=== PATIENT | female | born 1975 | race Caucasian/White ===

== ENCOUNTER → 2020-04-29 15:51 | Outpatient (CLI) | payer OTHER, SELFPAY ==
--- NOTE | ~2020-04-29 | MM_ITS ---
EXAMINATION: MM screening [facility] BI w luis alberto HISTORY: Screening TECHNIQUE: Craniocaudal and mediolateral oblique 3-D tomosynthesis images were obtained and synthetic 2-D images were generated. CAD analysis was submitted and interpreted. COMPARISON: Comparison to multiple prior studies sequentially, with oldest reviewed study dated 11/24. BREAST PARENCHYMAL COMPOSITION: There are scattered areas of fibroglandular density. FINDINGS: There is no evidence of suspicious mass, calcification, or architectural distortion to sugg est malignancy in either breast. There has been no suspicious interval change. IMPRESSION: 1. No mammographic evidence of malignancy. 2. Recommend routine screening mammography in one year. BI-RADS Category 1: Negative Reviewed, dictated and finalized at location A.
== END ==
PROVIDERS: PCP Internal Medicine; Visit Provider Student in an Organized Health Care Education/Training Program
DX: Z12.31 Encounter for screening mammogram for malignant neoplasm of breast (principal)
CPT/HCPCS: 77063; 77067

== ENCOUNTER 2021-04-08 10:58 | Outpatient (CLI) | payer OTHER, SELFPAY ==
--- NOTE | ~2021-04-08 | MR_ITS ---
EXAMINATION: MR lumbar spine wo con DATE: 04/08/2021 11:49 INDICATION: Low back pain. TECHNIQUE: Magnetic resonance imaging (MRI) of the lumbar spine was performed without intravenous con trast. Sequences included sagittal T2-weighted FSE, sagittal STIR FSE, sagittal T1-weighted FSE, and axial T2-weighted FSE. COMPARISON: Lumbar spine MRI 12/04/2017 FINDINGS: Bone alignment is normal. There are changes of anterior and posterior fusion procedures at L5-S1 with interbody devices and pedicle screws. There is mild chronic anterior wedging of T11 verteb ral body. Intervertebral disc heights are normal. The distal spinal cord signal intensity is normal. The conus medullaris is at L2. The following disc levels are specifically discussed: L1-L2: The disc does not extend beyond the endplate margin. There is mild bilateral facet joint osteo arthritis. There is no neural foraminal stenosis. There is no central canal stenosis. L2-L3: The disc does not extend beyond the endplate margin. There is mild bilateral facet joint osteo arthritis. There is no neural foraminal stenosis. There is no central canal stenosis. L3-L4: The disc does not extend beyond the endplate margin. There is moderate right and mild left fac et joint osteoarthritis. There is no neural foraminal stenosis. There is no central canal stenosis. L4-L5: The disc is bulging. There is moderate bilateral facet joint osteoarthritis. There is mild margarita ateral neural foraminal stenosis. There is mild central canal stenosis. L5-S1: There is no facet joint hypertrophy. There is mild left neural foraminal stenosis. There is no central canal stenosis. IMPRESSION: 1. Mild lumbar spondylosis, stable from 12/04/2017. 2. Anterior and posterior fusion procedures at L5-S1. Reviewed, dictated and finalized at location A.
== END 2021-04-08 10:59 ==
LOC: MICIMG 11:00
PROVIDERS: PCP Internal Medicine; Visit Provider Nurse Practitioner Family
DX: M47.896 Other spondylosis, lumbar region (principal); Z98.1 Arthrodesis status
CPT/HCPCS: 72148

== ENCOUNTER → 2021-05-29 00:42 | Outpatient (CLI) | payer OTHER, SELFPAY ==
[2021-05-29 17:30] LABS: SARS-CoV-2 RNA PCR Negative
== END ==
PROVIDERS: PCP Internal Medicine; Visit Provider Internal Medicine Gastroenterology
DX: Z01.812 Encounter for preprocedural laboratory examination (principal); Z20.822 Contact with and (suspected) exposure to COVID-19
CPT/HCPCS: C9803; U0003; U0005

== ENCOUNTER 2021-06-01 01:45 | Day surgery (SDC) | payer OTHER, SELFPAY ==
[2021-05-18 13:43] VITALS: BMI 42.1
[2021-06-01 07:10] VITALS: BP 138/92; PULSE 110; RESP 18; TEMP 35.9; O2SAT 99; BMI 41.2
[2021-06-01] MEDS: LACTATED RINGERS 1,000 ML 150 ML IV CONT (07:47)
--- NOTE | 2021-06-01 08:00 | SUR.PREOP ---
06-01-21: Spoke with patient. Pt states she had a hysterectomy in her 20s. No test done.
--- NOTE | 2021-06-01 08:21 | WPDANESEPPF ---
Anes - Initial Pre Proc Eval Procedure: Operation Date: 06/01/21 08:30 Proposed Procedures p Screening Colonoscopy - Sandeep Gibbs MD Date/Time: 06/01/21 08:21 Surgeon: Sandeep Gibbs MD Pre Op Diagnosis: neoplasm screening Patient Data Age: 46 Gender: F Height: 1.57 m Weight: 102.3 kg Last Vital Signs Temp 96.7 F L 06/01/21 07:10 Pulse 110 H 06/01/21 07:10 Resp 18 06/01/21 07:10 BP 138/92 H 06/01/21 07:10 Pulse Ox 99 06/01/21 07:10 Allergies Allergy/AdvReac Type Severity Reaction Status Date / Time aspirin Allergy Severe Unknown Verified 06/01/21 07:19 ferrous sulfate Allergy Severe Anaphylaxis Verified 06/01/21 07:19 Penicillins Allergy Severe Unknown Verified 06/01/21 07:19 prochlorperazine Allergy Severe Swelling Verified 06/01/21 07:19 Sulfa (Sulfonamide Allergy Severe Anaphylaxis Verified 06/01/21 07:19 Antibiotics) Home Medications Medication Instructions Recorded Confirmed Type tizanidine 6 mg capsule 6 mg PO TID PRN 07/03/19 06/01/21 History venlafaxine 75 mg capsule,extended 75 mg PO DAILY #90 cap 01/19/21 06/01/21 Rx release 24 hr cholecalciferol (vitamin D3) 1,250 50,000 unit PO WEEKLY #10 cap 04/06/21 06/01/21 Rx mcg (50,000 unit) capsule rosuvastatin 10 mg tablet 10 mg PO DAILY #30 tablet 04/06/21 06/01/21 Rx epinephrine 0.3 ml IM ONCE PRN 05/18/21 06/01/21 History naltrexone 3 mg PO BID 05/18/21 06/01/21 History sumatriptan succinate See Rx Instructions PO .COMPLEX PRN 05/18/21 06/01/21 History Patient hx anesthesia problems: none Family hx anesthesia problems: none Results Review: All pre-operative results and documents have been reviewed as part of the pre-operative evaluation. [facility] Past Medical History Medical History (Updated 04/06/21 @ 08:34 by Jesús Jaeger MD) Anemia Incontinence Metatarsal bone fracture Seasonal allergies Vaginal delivery x 2 Vision abnormalities Surgical History Surgical History History of dilation and curettage Previous back surgery S/P ACL surgery Right S/P breast lumpectomy S/P laparoscopic surgery Status post abdominal hysterectomy and right salpingo-oophorectomy Family History Family History Grandparent Family history of blood dyscrasia Father Hypertension Cerebrovascular accident Family history of obesity Depression Family history of coronary artery disease Family history of hearing loss Family history of chronic obstructive pulmonary disease Mother Hypertension Family history of obesity Family history of osteoporosis Patient's mother is in good health Cerebrovascular accident Family history of arthritis Family history of chronic obstructive pulmonary disease Other Acute myocardial infarction Family history of dementia Family history of gastrointestinal disorder Family history of thoracic aortic aneurysm Neuropathy Social History Social History (Updated 04/06/21 @ 07:55 by Eveline Pope CNA) Smoking packs per day: 1 Smoking cigarettes per day: 20.0 Years smoked: 22 Smoking pack-years: 22.00 Smoking status: Current every day smoker Tobacco type: cigarettes Second hand tobacco smoke exposure: No Alcohol intake: current Alcohol use details: socially Substance use: never Substance use type: does not use Living arrangements: with family Spiritual care concerns: No Anes - Eval Final PreProcedure Day of Procedure 06/01/21 08:21 Patient weight: morbidly obese Heart: regular rate and rhythm Lungs: clear to auscultation Airway: Mallampati scale class II Neurological: alert and oriented Last oral intake: >/= 8 hours ASA classification: III Emergent: no Anesthetic plan: proceed Anesthesia type and monitoring: general GIVS and standard monitoring Results Review: All pre-operative results and documents
--- NOTE | 2021-06-01 08:29 | PM.HPGS ---
History of Present Illness History of Present Illness Consent: Risks, benefits, and alternatives have been discussed and questions answered. Patient agrees to proceed with procedure. Chief complaint: neoplasm screening Narrative: Eveline Kee is a 46 year old female here for screening colonoscopy, had one in 2005 because rectal bleeding. Review of Systems Constitutional: Constitutional: Denies headache(s) and Denies weakness Eyes: Eyes: Denies blurry vision ENT: Reports Normal hearing present, Denies headache(s) and Denies neck pain Cardiovascular: Cardiovascular: Denies chest pain and Denies dyspnea Respiratory: Respiratory: Denies dyspnea Gastrointestinal: Gastrointestinal: Reports no additional gastrointestinal complaints Genitourinary: Genitourinary: Denies dysuria Musculoskeletal: Musculoskeletal: Denies neck pain Integumentary/Breasts: Skin/Breast: Denies dry skin Neurologic: Reports Normal hearing present, Denies headache(s) and Denies weakness Psychiatric: Psychiatric: Denies anxiety Endocrine: Endocrine: Denies change in body appearance Hematologic/Lymphatic: Hematologic/Lymphatic: Denies easy bleeding Allergic/Immunologic: Allergic/Immunologic: Denies urticaria PMFSH Past Medical History Medical History (Updated 04/06/21 @ 08:34 by Jesús Jaeger MD) Anemia Incontinence Metatarsal bone fracture Seasonal allergies Vaginal delivery x 2 Vision abnormalities Surgical History Surgical History History of dilation and curettage Previous back surgery S/P ACL surgery Right S/P breast lumpectomy S/P laparoscopic surgery Status post abdominal hysterectomy and right salpingo-oophorectomy Family History Family History Grandparent Family history of blood dyscrasia Father Hypertension Cerebrovascular accident Family history of obesity Depression Family history of coronary artery disease Family history of hearing loss Family history of chronic obstructive pulmonary disease Mother Hypertension Family history of obesity Family history of osteoporosis Patient's mother is in good health Cerebrovascular accident Family history of arthritis Family history of chronic obstructive pulmonary disease Other Acute myocardial infarction Family history of dementia Family history of gastrointestinal disorder Family history of thoracic aortic aneurysm Neuropathy Social History Social History (Updated 04/06/21 @ 07:55 by Eveline Pope CNA) Smoking packs per day: 1 Smoking cigarettes per day: 20.0 Years smoked: 22 Smoking pack-years: 22.00 Smoking status: Current every day smoker Tobacco type: cigarettes Second hand tobacco smoke exposure: No Alcohol intake: current Alcohol use details: socially Substance use: never Substance use type: does not use Living arrangements: with family Spiritual care concerns: No Meds Home Medications and Allergies Home Medications Medication Instructions Recorded Confirmed Type tizanidine 6 mg capsule 6 mg PO TID PRN 07/03/19 06/01/21 History venlafaxine 75 mg capsule,extended 75 mg PO DAILY #90 cap 01/19/21 06/01/21 Rx release 24 hr cholecalciferol (vitamin D3) 1,250 50,000 unit PO WEEKLY #10 cap 04/06/21 06/01/21 Rx mcg (50,000 unit) capsule rosuvastatin 10 mg tablet 10 mg PO DAILY #30 tablet 04/06/21 06/01/21 Rx epinephrine 0.3 ml IM ONCE PRN 05/18/21 06/01/21 History naltrexone 3 mg PO BID 05/18/21 06/01/21 History sumatriptan succinate See Rx Instructions PO .COMPLEX PRN 05/18/21 06/01/21 History Allergies Allergy/AdvReac Type Severity Reaction Status Date / Time aspirin Allergy Severe Unknown Verified 06/01/21 07:19 ferrous sulfate Allergy Severe Anaphylaxis Verified 06/01/21 07:19 Penicillins Allergy Severe Unknown Verified 06/01/21 07:19 prochlorperazine Allergy Severe Swel
[2021-06-01 08:45] VITALS: BP 97/59; PULSE 76; RESP 20; O2SAT 98
[2021-06-01 08:55] VITALS: BP 102/60; PULSE 76; RESP 20; O2SAT 97
[2021-06-01 09:05] VITALS: BP 130/80; PULSE 69; RESP 24; O2SAT 100
== END 2021-06-01 09:11 | disposition home or self-care (01) ==
PROVIDERS: PCP Internal Medicine; Visit Provider Internal Medicine Gastroenterology
PROC: 0DJD8ZZ Inspection of Lower Intestinal Tract, Via Natural or Artificial Opening Endoscopic (ICD-10-PCS; CPT 45378; principal; 2021-06-01 08:30)
DX: Z12.11 Encounter for screening for malignant neoplasm of colon (principal); K64.8 Other hemorrhoids; D64.9 Anemia, unspecified; Z79.82 Long term (current) use of aspirin; F17.210 Nicotine dependence, cigarettes, uncomplicated; E66.9 Obesity, unspecified; Z68.41 Body mass index [BMI] 40.0-44.9, adult
CPT/HCPCS: G0121; C9803; J2704; J7120; U0003; U0005

== ENCOUNTER 2021-11-20 09:39 | Emergency (ER) | payer OTHER, SELFPAY ==
[2021-11-20 10:01] VITALS: BP 144/92; PULSE 96; RESP 16; O2SAT 100
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
[2021-11-20] MEDS: CIPROFLOXACIN 500 MG TAB PO (10:41)
== END 2021-11-20 10:54 | disposition home or self-care (01) ==
PROVIDERS: Emergency Provider Emergency Medicine; PCP Internal Medicine
DX: S00.432A Contusion of left ear, initial encounter (principal); Z86.2 Personal history of diseases of the blood and blood-forming organs and certain disorders involving the immune mechanism; F17.210 Nicotine dependence, cigarettes, uncomplicated; W51.XXXA Accidental striking against or bumped into by another person, initial encounter
CPT/HCPCS: 99283; A9270

== ENCOUNTER 2022-05-12 13:04 | Outpatient (CLI) | payer OTHER, SELFPAY ==
--- NOTE | ~2022-05-12 | US_ITS ---
EXAMINATION: US_BCALIMG_US DATE: 05/12/2022 14:41 INDICATION: Mastitis and possible breast abscess TECHNIQUE: Targeted ultrasound was performed at the 9:00 location the breast near the nipple at the a deisy of clinical concern. An approximately 1.3 x 0.7 cm fluid collection is identified in the area of clinical interest. The procedure for aspiration and its risks and benefits were discussed with the sridevi linder. Potential risks discussed included bleeding and infection. The skin was prepared and draped in sterile fashion. 1% lidocaine was used for local anesthesia. Under ultrasound guidance, an 18-gauge needle was guided into the fluid collection. Approximately 1 to 2 cc of purulent and bloody fluid was aspirated and sent for analysis. There were no immediate complications. FINDINGS: Ultrasound images demonstrate the needle within the fluid and subsequent aspiration. IMPRESSION: 1. Successful ultrasound-guided breast aspiration yielding approximately 1 to 2 cc of purulent and bl oody fluid. Reviewed, dictated and finalized at location A. IMPRESSION: 1. Successful ultrasound-guided breast aspiration yielding approximately 1 to 2 cc of purulent and bloody fluid.
== END 2022-05-12 13:05 | disposition home or self-care (01) ==
PROVIDERS: PCP Internal Medicine; Visit Provider Surgery
DX: N61.0 Mastitis without abscess (principal)
CPT/HCPCS: 19000; 76641; 76942; 87070; 87075; 87205

== ENCOUNTER → 2022-07-20 13:21 | Outpatient (CLI) | payer OTHER, SELFPAY ==
--- NOTE | ~2022-07-20 | MM_ITS ---
EXAMINATION: MM screening [facility] BI w luis alberto HISTORY: Screening mammogram TECHNIQUE: Craniocaudal and mediolateral oblique 3-D tomosynthesis images were obtained and synthetic 2-D images were generated. CAD analysis was submitted and interpreted. COMPARISON: 04/29/2020, 04/16/2018, 12/06/2016, 11/24/2016 BREAST PARENCHYMAL COMPOSITION: There are scattered areas of fibroglandular density. FINDINGS: No suspicious mass, calcification, or architectural distortion are identified in either nikita ast to suggest malignancy. There has been no suspicious interval change. IMPRESSION: 1. No mammographic evidence of malignancy. 2. Recommend routine screening mammography in one year. BI-RADS Category 1: Negative Reviewed, dictated and finalized at location A. ING SCHEDULER
== END ==
PROVIDERS: PCP Internal Medicine; Visit Provider Nurse Practitioner
DX: Z12.31 Encounter for screening mammogram for malignant neoplasm of breast (principal)
CPT/HCPCS: 77063; 77067

== ENCOUNTER 2023-02-21 09:18 | Outpatient (CLI) | payer OTHER, SELFPAY ==
--- NOTE | ~2023-02-21 | MMUS_ITS ---
EXAMINATION: MM diagnostic rodney LT w luis alberto, US breast LT limited HISTORY: Subareolar abscess of the left breast TECHNIQUE: Craniocaudal, mediolateral, and mediolateral oblique 3-D tomosynthesis images of the left breast were performed and synthetic 2-D images were generated. CAD analysis was submitted and interpr eted. High resolution limited left breast ultrasound was performed. COMPARISON: 07/20/2022, 05/12/2022, 04/29/2020, 04/16/2019 BREAST PARENCHYMAL COMPOSITION: There are scattered areas of fibroglandular density. FINDINGS: MAMMOGRAPHIC FINDINGS: No suspicious mass, calcification, or architectural distortion are identified to suggest malignancy. There has been no suspicious interval change. No mammographic correlate is identified for the reporte d subareolar left breast abscess. ULTRASOUND: There is a 7 mm fluid collection in the skin of the left breast near the nipple and the area of palpa ble concern. No suspicious cystic or solid breast mass is identified. IMPRESSION: 1. Subcentimeter skin abscess of the left breast near the nipple corresponding to the palpable abnorm ality. Clinical follow-up is recommended. 2. Recommend routine screening mammography, due in July 2023. BI-RADS Category 2: Benign finding(s). Reviewed, dictated and finalized at location C. IMPRESSION: 1. Subcentimeter skin abscess of the left breast near the nipple corresponding to the palpable abnormality. Clinical follow-up is recommended. 2. Recommend routine screening mammography, due in July 2023. BI-RADS Category 2: Benign finding(s).
== END 2023-02-21 09:19 ==
LOC: MICIMG 09:19
PROVIDERS: PCP Physician Assistant; Visit Provider Surgery
DX: N61.1 Abscess of the breast and nipple (principal)
CPT/HCPCS: 76642; 77061; 77065; G0279

== ENCOUNTER 2023-04-19 08:20 | Outpatient (CLI) | payer OTHER, SELFPAY ==
--- NOTE | 2023-04-19 08:32 | ECG_ITS ---
Measurements Intervals [place] Rate: 78 P: 60 NV: 142 QRS: 34 QRSD: 94 T: 26 QT: 374 QTc: 427 Interpretive Statements SINUS RHYTHM NO PREVIOUS ECG AVAILABLE FOR COMPARISON Electronically Signed On 04-19-2023 15:44:07 CDT by Sherice Moreno M.D.
== END 2023-04-19 08:21 | disposition home or self-care (01) ==
LOC: ANHSURGERY 08:23
PROVIDERS: PCP Physician Assistant; Visit Provider Surgery
DX: E78.5 Hyperlipidemia, unspecified (principal); Z01.818 Encounter for other preprocedural examination
CPT/HCPCS: 93005

== ENCOUNTER 2023-04-25 01:35 | Day surgery (SDC) | payer OTHER, SELFPAY ==
[2023-04-13 09:33] VITALS: BMI 41.2
--- NOTE | 2023-04-13 09:34 | PC.NURSE ---
Report to the Outpatient Waiting Room, entrance under the green pavilion located off [facility], at time _0600_ on date _[id number]_. Planned Procedure Time: _0730_. Time changes happen often and if your time is changed the preop area will call you the afternoon before. - You and your visitor will be asked to self-screen and do not enter if you have any COVID symptoms. - A mask is optional within the hospital at this time. Patients may have clear liquids (water, carbonated beverages, clear teas, apple juice) until 3 hours prior to surgery with a maximum of 20 ounces. - No food from midnight until time of surgery Take the following medications with a SIP of water the morning of surgery: ___Venlafaxine, Naltrexone DO NOT STOP ANY OF YOUR OTHER PRESCRIPTION MEDICATIONS PRIOR TO SURGERY ?EXCEPT THE FOLLOWING Medications to discontinue per physician Vitamin D3 Date to take last [id number]__[phone] Please no make-up, nail ethiopian, hairspray, perfume, deodorant, or body powder the day of surgery. No jewelry (including any body piercings) or valuables the day of surgery, leave them at home. Please take a shower or bath the night before, or the morning of, surgery with an antibacterial soap. Wear comfortable, loose fitting clothing. - Jewelry must be removed prior to entering the operating room. Rings and piercings that are not removed may be cut off. - The hospital will not accept responsibility for valuables. - Please leave all valuables, including medications, at home the day of surgery. If you are going home after surgery, a licensed jitney driver must drive you home. - NO public transportation without another adult if you receive anesthesia. - We recommend that an adult stay with you for 24 hours following discharge. - We also recommend that you do not drive, make important decision, drink alcoholic beverages, or take any drugs that were not prescribed by your health care provider for at least 24 hours after your discharge time. Follow any additional instructions given to you from your surgeon. If you or anyone in your household have experienced Covid symptoms in the past week, please notify your surgeon or the nurse liaison at the phone number below for possible testing. Telephone instructions given to __Patient__and asked if any additional questions and then verbalized understanding. Patient advised to call surgeon office or pre surgery nurse liaison [phone] if any additional questions.
[2023-04-25] VITALS (8 sets, daily range): BP systolic 114–150; BP diastolic 78–95; PULSE 66–99; RESP 12–20; TEMP 36.5–36.6; O2SAT 66–100
[2023-04-25] MEDS: SCOPOLAMINE 1.5 MG PATCH TRANSDERM (06:30)
[2023-04-25] MEDS: LACTATED RINGERS 1,000 ML 30 ML IV CONT ×2 (06:30→08:30)
[2023-04-25] MEDS: ACETAMINOPHEN 500 MG TABLET 1000 MG PO (06:30)
--- NOTE | 2023-04-25 06:58 | WPDANESEPPF ---
Anes - Initial Pre Proc Eval Procedure: Operation Date: 04/25/23 07:30 Proposed Procedures p Excisional Biopsy Left Breast Subareolar Cyst and Total Duct Excision - Ana Siegel MD Date/Time: 04/25/23 06:58 Surgeon: Ana Siegel MD Pre Op Diagnosis: mastitis without abscess left breast Patient Data Age: 47 Gender: F Height: 1.57 m Weight: 102.3 kg Allergies Allergy/AdvReac Type Severity Reaction Status Date / Time aspirin Allergy Severe Unknown Verified 04/19/23 09:12 ferrous sulfate Allergy Severe Anaphylaxis Verified 04/19/23 09:12 Penicillins Allergy Severe Unknown Verified 04/19/23 09:12 prochlorperazine Allergy Severe Swelling Verified 04/19/23 09:12 Sulfa (Sulfonamide Allergy Severe Anaphylaxis Verified 04/19/23 09:12 Antibiotics) Home Medications Medication Instructions Recorded Confirmed Type tizanidine 6 mg capsule 6 mg PO TID PRN Pain 07/03/19 04/13/23 History naltrexone 50 mg tablet 3 mg PO BID 05/18/21 04/13/23 History cholecalciferol (vitamin D3) 25 25 mcg PO DAILY 10/27/22 04/13/23 History mcg (1,000 unit) capsule ciclopirox 8 % topical solution 1 applic topical QHS 48 weeks #6.6 10/27/22 04/13/23 Rx mL epinephrine 0.3 mg/0.3 mL 0.3 mg (0.3 mL) IM ONCE #2 ea 10/27/22 04/13/23 Rx injection, auto-injector venlafaxine 75 mg capsule,extended See Rx Instructions .Route 03/06/23 04/13/23 Rx release 24 hr .COMPLEX #90 caps Patient hx anesthesia problems: post op nausea/vomiting Family hx anesthesia problems: none Results Review: All pre-operative results and documents have been reviewed as part of the pre-operative evaluation. [facility] Past Medical History Medical History (Updated 01/18/23 @ 08:50 by Ana Siegel MD) Anemia Depression History of blood transfusion History of bronchitis History of miscarriage Incontinence Metatarsal bone fracture Seasonal allergies Vaginal delivery x 2 Vision abnormalities Surgical History Surgical History History of dilation and curettage Previous back surgery S/P ACL surgery Right S/P breast lumpectomy S/P laparoscopic surgery Status post abdominal hysterectomy and right salpingo-oophorectomy Family History Family History Grandparent Family history of blood dyscrasia Father Hypertension Cerebrovascular accident Family history of obesity Depression Family history of coronary artery disease Family history of hearing loss Family history of chronic obstructive pulmonary disease Mother Hypertension Family history of obesity Family history of osteoporosis Patient's mother is in good health Family history of arthritis Family history of chronic obstructive pulmonary disease Other Acute myocardial infarction Family history of dementia Family history of gastrointestinal disorder Family history of thoracic aortic aneurysm Neuropathy Social History Social History (Updated 01/18/23 @ 08:07 by Ilana Murcia [facility]) Smoking packs per day: 1 Smoking cigarettes per day: 20.0 Years smoked: 20 Smoking pack-years: 20.00 Smoking status: Current every day smoker Tobacco type: cigarettes Second hand tobacco smoke exposure: Yes Alcohol intake: current Alcohol use details: socially Substance use: never Substance use type: does not use Lack of Transportation: No Lack of Food: Never True Current Housing: I Have Housing Concerned About Future Housing: No Difficulty Paying Gas/Electric Bills: No Difficulty Paying for Meds: No Currently Unemployed: No Education: Associate Degree Difficulty w/ Childcare or Family Care: No Living arrangements: with family Spiritual care concerns: No Anes - Eval Final PreProcedure Day of Procedure 04/25/23 06:58 Patient weight: morbidly obese Heart: regular rate and rhythm Lungs: clear to
--- NOTE | 2023-04-25 06:58 | WPDHPUPDATE1 ---
History and Physical Update Update Date/Time: 04/25/23 06:58 History and Physical has been reviewed, including an updated exam of the patient. There are NO changes in the patient's condition. Risks, benefits, and alternatives have been discussed and questions answered. Patient agrees to proceed with procedure.
[2023-04-25] MEDS: ceFAZolin 2 GM/D5W 50 ML 2 GM/50 ML BAG IVPB (07:26)
--- NOTE | 2023-04-25 08:22 | P.OP_ITS ---
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 She was laid supine on the operating table sequential compression devices were applied. General anesthesia was induced without difficulty. A medial periareolar incision was made and dissection was carried down to the subareolar chronic abscess capsule. This was completely excised, and inspection of the cavity revealed a small fistula tract connecting to the lateral part of the nipple, likely consistent with the nipple ring tract. This tract also excised and sent as a specimen. I proceeded to excise the remaining central ducts there were visible on the operating field that were likely connecting to the subareolar abscess cavity. All the specimens were sent as permanent specimen to pathology. The cavity was irrigated and hemostasis was assured. Medial fistula tract opening at the areolar skin was also excised along with the abscess cavity. This small incision was closed with a single [id number] 4- 0 Monocryl. The periareolar incision was closed with deep dermal interrupted 3- 0 Vicryl and the skin was closed with 4-0 Monocryl in a subcuticular fashion. Dermabond was applied followed by a sterile dressing and a compression bra. Patient was awoken from anesthesia taken to the recovery area in stable condition. All needles, instruments, and sponge counts were correct as reported by the operating room staff. Patient tolerated the procedure well with no immediate complications. Estimated Blood Loss 5 Pathology Yes Complications No immediate complications Condition Stable Disposition PACU [facility] Billing Surgery - Charge Forward: Surgery Billing
[2023-04-25] MEDS: BUPIVACAINE/EPINEPHRINE 0.5% 50 ML VIAL 17 ML INFILTRATE (08:34)
[2023-04-25] MEDS: diphenhydrAMINE HCl INJ 50 MG/ML VIAL 12.5 MG IV PUSH ×2 (09:39→09:56)
[2023-04-25] MEDS: oxyCODONE HCL (*CRX) 5 MG TAB IR PO (10:12)
== END 2023-04-25 10:36 | disposition home or self-care (01) ==
PROVIDERS: PCP Physician Assistant; Visit Provider Surgery
PROC: (CPT 19120; principal; 2023-04-25 07:30)
DX: N60.82 Other benign mammary dysplasias of left breast (principal); N61.1 Abscess of the breast and nipple; D64.9 Anemia, unspecified; F32.A Depression, unspecified; F17.210 Nicotine dependence, cigarettes, uncomplicated; Z79.82 Long term (current) use of aspirin; E66.01 Morbid (severe) obesity due to excess calories; Z68.41 Body mass index [BMI] 40.0-44.9, adult
CPT/HCPCS: 19120; 88305; 93005; A9270; J0690; J1100; J1200; J2250; J2405; J2704; J3010; J7120; Q9968

== ENCOUNTER 2023-06-21 15:50 | Outpatient (CLI) | payer OTHER, SELFPAY ==
[2023-06-21 16:54] LABS: RSV RNA, RT-PCR Negative (Negative)
== END 2023-06-21 15:51 | disposition home or self-care (01) ==
PROVIDERS: PCP Physician Assistant; Visit Provider Physician Assistant
DX: Z20.828 Contact with and (suspected) exposure to other viral communicable diseases (principal)
CPT/HCPCS: 87634

== ENCOUNTER 2024-05-15 13:52 | Outpatient (CLI) | payer OTHER, SELFPAY ==
--- NOTE | ~2024-05-15 | MM_ITS ---
EXAMINATION: MM screening rodney BI w luis alberto HISTORY: Screening mammogram TECHNIQUE: Craniocaudal and mediolateral oblique 3-D tomosynthesis images were obtained and synthetic 2-D images were generated. CAD analysis was submitted and interpreted. COMPARISON: 02/21/2023, 07/20/2022, 04/29/2020 BREAST PARENCHYMAL COMPOSITION:Not Dense. The breasts are almost entirely fatty FINDINGS: No suspicious mass, calcification, or architectural distortion are identified in either nikita ast to suggest malignancy. There has been no suspicious interval change. IMPRESSION: No mammographic evidence of malignancy. Recommend routine screening mammography in one year. BI-RADS Category 1: Negative Reviewed, dictated and finalized at location .
== END 2024-05-15 13:53 | disposition home or self-care (01) ==
PROVIDERS: PCP Internal Medicine; Visit Provider Internal Medicine
DX: Z12.31 Encounter for screening mammogram for malignant neoplasm of breast (principal)
CPT/HCPCS: 77063; 77067

== ENCOUNTER 2024-10-22 10:06 | Outpatient (CLI) | payer OTHER, SELFPAY ==
--- OUTSIDE RECORDS SUMMARY | 2024-10-22 11:15 | XMS_ITS | Clinical Summary ---
Author Organization [facility] Address [address] [place] [address] Phone Care Team Providers Care Orthophoto Tech/Draftsman Name Role Phone Dustin Edwards MD Primary Care Provider Active Problems Problem Noted Date Diagnosed Date Chronic pain syndrome 10/28/2016 Somatic symptom disorder, pe rsistent, severe, with predominant pain 10/28/2016 Social History Tobacco Use Types Packs/Day Years Used Date Smoking Tobacco: Never Assessed Comments Unknown Sex and Gender Information Value Date Recorded Sex Assigned at Not on file Legal Sex Female 3:10 PM CDT Gender Identity Not on file Sexual Orientation Not on file Plan of Treatment Health Maintenance Due Date Last Done Comments Hepatitis C Virus (HCV) Screening 1975 Hepatitis B Immunization (1 of 3 - 19+ 3-dose series) 1994 Pap Smear 1996 Cervical Cancer Screening (CCS) 2005 HPV/Cotest 2005 Discussion re Starting/Frequ ency of Mammograms 2015 Colonoscopy 2020 Colorectal Cancer Screening 2020 Influenza Immunization (#1) 2024 SARS-COV-2 Immunization ( season) 2024 Respiratory Syncytial Virus (RSV) Immunization (Adult) (1 - 1-dose 75+ series) 2050 DTaP/Tdap/Td Immunization Discontinued 11/30/2011 TdaP Immunization Completed 11/30/2011 Meningococcal Immunization (ACWY) Aged Out No longer eligible based on patient's age to complete this topic Pneumococcal Immunization Combined Aged Out No longer eligible b ased on patient's age to complete this topic Rotavirus Immunization Aged Out No lo nger eligible based on patient's age to complete this topic Insurance MEDICARE C ESSENCE Care Teams Orthophoto Tech/Draftsman Relationship Specialty Start Date End Date Dustin Edwards MD [address] [place] [address] PCP - General Family Medicine 10/27/16
--- OUTSIDE RECORDS SUMMARY | 2024-10-22 11:15 | XMS_ITS | Continuity of Care Document ---
Author Organization [employer] [facility] [employer] [facility] Address [address] [address] [place] [address] Phone Care Team Providers Care Wardsperson Name Role Phone Unavailable Unavailable Unavailable Allergies, Adverse Reactions, Alerts Substance Reaction Status Criticality PROCHLORPERAZINE MALEATE rash/ swelling Active N o Information PROCHLORPERAZINE EDISYLATE rash/ swelling Active No Information aspirin swelling of throat Active No Inform ation Sulfa (Sulfonamide Antibiotics) hives Active No Information Penicillins hives Active No Information Medications Medication Instructions Dosage Effective Dates (start - stop) Status Comments Lunesta 3 mg Tab 1 tab po hs - Active Effexor XR 75 mg 24 hr Cap - Active phentermine 15 mg Cap Take one tablet by mouth daily - Active Advance Directives Directive Yes / No Effective Date File Name No Information Encounters Encounter Description Practice Location Reason(s) For Visit Diagnoses Date Provider Providers Copied on Encounter [employer] [facility], [address] [address], [place], [place], [id number] , tel: [phone] [facility] 1st Care No Information 9 No Information [employer] [facility], [address] [address], [place], [place], [id number] , tel: [phone] [facility] Orthopaedics No Information 6 Debbie Sultana. [address] [place] [address], [id number], [place]. tel:[phone] Referring Provider: Rd Lewis, [address] [place] [address], [address] . tel:[phone] [employer] [facility], [address] [address], [place], [place], [id number] , [place] tel: [phone] [facility] wrist injury (chief complaint) No Information 6 Amy Orellana. [address] [place], [place], [id number], [place]. tel:[phone] Referring Provider: Esteban Reyes, [address] [place], [address] . tel:[phone] [facility], [address] [address], [place], [place], [id number] , [place] tel: [phone] [facility] wt gain, depression (chief complaint) No Information 5 Amy Orellana. [address] [place], [place], [id number], [place]. tel:[phone] Referring Provider: Esteban Reyes, [address] [place], [address] . tel:[phone] Family History Family Member Type Diagnosis Age At Onset No Information Payers Payer name Insurance type Covered democrat ID Authoriza tion(s) No Information Social History Type Description Quantity Date Captured Comments Sex Female Smoking Status No Information Chief Complaint And Reason For Visit No Information Reason For Referral Reason For Referral No Information History Of Present Illness Encounter Date Complaint History Of Prese nt Illness No Information Functional Status Date Functional Assessmen t No Information Instructions Date Instruction Additional Infor mation No Information Assessments Type Assessment Date No Information Patient Care Teams Name Effective Dates (start - stop) Status Members No Information
--- OUTSIDE RECORDS SUMMARY | 2024-10-22 11:15 | XMS_ITS | Clinical Summary ---
Author Organization [facility] Address [address] [place] [address] Care Team Providers Care Registered Radiation Therapist Name Role Phone Unavailable Primary Care Provider Unavailabl e Social History Tobacco Use Types Packs/Day Years Used Date Smoking Tobacco: Never Assessed Comments Unknown Sex and Gender Information Value Date Recorded Sex Assigned at Not on file Legal Sex Female 8:01 PM CDT Gender Identity Not on file Sexual Orientation Not on file Last Filed Vital Signs Vital Sign Reading Time Taken Comments Blood Pressure 132/80 04/13/2017 9:53 AM CDT Pulse 104 04/13/2017 9:53 AM CDT Temperature - - Respiratory Rate - - Oxygen Saturation - - Inhaled Oxygen Concentration - - Weight 88.5 kg (195 lb 2.1 oz) 04/13/2017 9:53 A M CDT Height 157.5 cm (5' 2 ) 04/13/2017 9:53 AM CDT Body Mass Index 35.69 04/13/2017 9:53 AM CDT Plan of Treatment Health Maintenance Due Date Last Done Comments Cervical Cancer Screening Pa p Smear (Age 30 to 64) Every 3 Years 1975 Colorectal Cancer Screening Colonoscopy (10 Years) 1975 Annual Physical 1978 Hepatitis C 1993 DTaP, Tdap and Td Vaccines ( 1 - Tdap) 1994 Hepatitis B Vaccines (1 of 3 - 19+ 3-dose series) 1994 Mammogram Screening 12/06/2018 12/06/2016 Cervical Cancer Screening Pa p with HPV Testing (Age 30 to 64) Every 5 Years 11/29/2021 11/29/2016, 11/29/2016 Cervical Cancer Screening wi th HPV 11/29/2021 COVID-19 Vaccine (2023-2 5 season) 2024 Meningococcal B Vaccine Aged Out No l onger eligible based on patient's age to complete this topic Meningococcal Vaccine Aged Out No ronaldo anne-marie eligible based on patient's age to complete this topic Pneumococcal Vaccine: Pediatrics (0 to 5 Years) and At-Risk Patients (6 to 64 Years) Aged Out No longer eligible b ased on patient's age to complete this topic RSV Immunizations Under 20 Months Aged Out No longer eligible b ased on patient's age to complete this topic Procedures Procedure Name Priority Date/Time Associated Diagnosis Comments MG DIAGNOSTIC NENA DIGI Routine 12/06/2016 12:00 AM CDT THINPREP PAP AND HPV DNA, WI GC/CHMD Routine 11/29/2016 2:00 PM CDT from Last 3 Months or Most Recently Relevant to Health Maintenance Results * MG DIAGNOSTIC NENA DIGI (12/06/2016 12:00 AM CDT) Anatomical Region Laterality Modality Breast Bilateral Mammography 12/06/2016 12/06/2016 Narrative 04/13/2017 10:00 AM CDT birads 2 - benign Procedure Note , Generic Conversion, MD - 05/10/2018 birads 2 - benign us Donell Reddy MD MAMMO Final Result * THINPREP PAP AND HPV DNA, WI GC/CHMD (11/29/2016 2:00 PM CDT) CLINICAL INFORMATION: SEE NOTE [facility] TO EPIC CONVERSION Comment:Result Comment: Info rmation not provided Clinical Information: SEE NOTE [facility] TO EPIC CONVERSION Comment:Result Comment: Info rmation not provided Date of Last Pap SEE NOTE [facility] TO EPIC CONVERSION Comment:Result Comment: Info rmation not provided Previous Biopsy? SEE NOTE [facility] TO EPIC CONVERSION Comment:Result Comment: Info rmation not provided SOURCE (QST) SEE NOTE [facility] TO EPIC CONVERSION Comment:Result Comment: Info rmation not provided COMMENT SEE NOTE [facility] T O EPIC CONVERSION Comment: Result Comment: Satisfactory for evaluation. Endocervical/transformation zone component present. Age and/or menstrual status not provided PAP INTERPRETATION/RESU LTS SEE NOTE [facility] TO EPIC CONVERSION Comment:Result Comment: Nega tive for intraepithelial lesion or malignancy. COMMENT: SEE NOTE [facility] T O EPIC CONVERSION Comment: Result Comment: This Pap test has been evaluated with computer assisted technology. TRANSMISSION TECHNICIAN SEE NOTE [facility] TO EPIC CONVERSION Comment: Result Comment: MEF, CT(ASCP) CT screening location: [address] [place] [address] REVIEW TRANSMISSION TECHNICIAN: SEE NOTE [facility] T O EPIC CONVERSION Comment: Result Comment: MDG, CT(ASCP) CT screening location: [place] [address] [place] [address] HPV INTERMEDIATE/HIGH RISK TNP [facility] TO EPIC CONVERSION Comment: Result Comment: Test not performed. Duplicate test. CHLAMYDIA TRACHOMATIS RNA TMA NOT DETECTED NOT DETECTED [facility] TO EPIC CONVERSION N.GONORRHOEAE RNA TMA (QST) NOT DETECTED NOT DETECTED [facility] TO EPIC CONVERSION COMMENT: SEE NOTE [facility] T O EPIC CONVERSION Comment: Result Comment: This test was performed using the APTIMA COMBO2 Assay ([employer] The analytical performance characteristics of this assay, when used to test [employer] specimens have been determined by [employer]. Test Performed at: [facility] [address] [address] MIGUEL WYNN MD INFECTION: SEE NOTE [facility] TO EPIC CONVERSION Comment:Result Comment: Tric homonas vaginalis identified. 11/29/2016 2:00 PM CDT 11/29/2016 2:00 PM CDT Narrative [facility] TO EPIC CONVERSION - 11/30/2016 2:59 AM CDT Result Communication: No patient communication needed at this time Marce ALMONTE PATHOLOGY/CYTOLOGY ORDERABLES Final Result [facility] TO EPIC CONVERSION from Last 3 Months or Most Recently Relevant to Health Maintenance
--- OUTSIDE RECORDS SUMMARY | 2024-10-22 11:15 | XMS_ITS | Clinical Summary ---
Author Organization [email or web address] Address [address] [place] [address] Care Team Providers Care Motion Designer Name Role Phone Arcenio Cowan MD Unavailable Jesús Jaeger MD Primary Care Provider [phone] Source Comments [email or web address],non-owned Affiliates and Associated Physician Practices is amultiple site organization consisting of ambulatory clinics and hospital sitesin [place], [place], [place] and [place]. This disclosure is being madepursuant to the Care Everywhere program and may not contain all information available regarding this patient. Last updated 18.[email or web address] Allergies Active Allergy Reactions Criticality Noted Date Comments Aspirin Anaphylaxis High 02/10/2017 As a child Prochlorperazine Rash,Swelling Medium 02/10/2017 Ferrous Sulfate Anaphylaxis High 02/10/2017 Has sulfa in it. Penicillins 02/10/2017 As a child. Can't remember what reaction was. Sulfa Drugs Anaphylaxis High 02/10/2017 As a child Medications * Be aware that medications may not be up to date on this document. Alwaysverify current medications with the patient. Medication Sig Dispensed Refills Start Date End Date Status EPINEPHrine (EPIPEN) 0.3 MG/0.3ML auto-injector pen Inject 0.3 mg into muscle as needed for Allergic Reaction 1 01/16/2017 Active morphine SR 24hr (HANNA) 30 MG capsule Take 30 mg by mouth 2 times daily Patient is taking Morphine ER 30 mg BID 0 01/31/2017 Active morphine (MSIR) 15 MG tablet Take 15 mg by mouth every 8 hours as needed for Pain Active cyclobenzaprine (FLEXERIL) 10 MG tablet Take 10 mg by mouth 3 times daily as needed for Muscle Spasms 0 03/14/2017 Active tiZANidine (ZANAFLEX) 4 MG tablet Take 4 mg by mouth 3 times daily 2 11/08/2017 Active buPROPion XL 24hr (WELLBUTRIN-XL) 150 MG tablet Take 150 mg by mouth once daily 0 11/10/2017 Active ALPRAZolam (XANAX) 0.25 MG tablet Take 0.25 mg by mouth once daily as needed for Anxiety 0 11/01/2017 Active naltrexone 3 MG capsule Take 1 capsule by mouth once daily Active Active Problems Problem Noted Date Diagnosed Date 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 Osteoarthritis of multiple joints 11/27/2017 Polyarthralgia 08/28/2017 Chronic low back pain 08/28/2017 Medication monitoring encounter 08/28/2017 Resolved Problems Problem Noted Date Diagnosed Date Resolved Date Elevated rheumatoid factor 08/28/2017 0 11/27/2017 Family History Medical History Relation Name Comments HIV/AIDS Brother Raynaud's Syndr ome Colitis Sister 1 Thyroid Disease Sister 1 Crohn's Disease Sister 2 Relation Name Status Comments Brother Alive Father Mother Alive Sister 1 Alive Sister 2 Social History Tobacco Use Types Packs/Day Years Used Date Smoking Tobacco: Every Day Cigarettes Smokeless Tobacco: Never Tobacco Cessation:Ready to Q uit: No; Counseling Given: Yes Alcohol Use Standard Drinks/Week Comments Yes 0 (1 standard drink = 0.6 oz pur e alcohol) Rare Sex and Gender Information Value Date Recorded Sex Assigned at Not on file Gender Identity Not on file Sexual Orientation Not on file Last Filed Vital Signs Vital Sign Reading Time Taken Comments Blood Pressure 110/74 11/27/2017 12:32 PM CDT Pulse 102 11/27/2017 12:32 PM CDT Temperature - - Respiratory Rate - - Oxygen Saturation - - Inhaled Oxygen Concentration - - Weight 92.2 kg (203 lb 3.2 oz) 11/27/2017 12:32 PM CDT Height 157.5 cm (5' 2 ) 11/27/2017 12:32 PM CDT Body Mass Index 37.17 11/27/2017 12:32 PM CDT Plan of Treatment Health Maintenance Due Date Last Done Comments COLOGUARD (AGES 45-75) - COL ON CA SCREENING 1975 COLON MONITORING 1975 COLONOSCOPY - COLON CA SCREENING 1975 CT COLONOGRAPHY - COLON CA SCREENING 1975 Colorectal Cancer Screening 1975 FIT - COLON CA SCREENING 1975 FLEX SIG - COLON CA SCREENING 1975 LIPID TESTING 1975 MAMMOGRAM 1975 MEDICARE AWV 12 MONTHS 1975 PAP SMEAR 1975 HIV SCREENING 1990 DTAP/TDAP/TD VACCINES (1 - Tdap) 1994 HEPATITIS B VACCINE (1 of 3 - 19+ 3-dose series) 1994 PNEUMOCOCCAL VACCINE (1 of 2 - PCV) 1994 SCREENING FOR DIABETES 08/28/2020 8, 02/10/2017 COVID-19 VACCINE (1 - 2023-2 5 season) 2024 DEPRESSION SCREENING 07/17/2024 MEDICARE AWV CALENDAR YEAR 2024 INFLUENZA VACCINE (Season Ended) 2025 ZOSTER VACCINE (1 of 2) 2025 HEPATITIS C SCREENING Completed 02/10/2017 HIB VACCINE Aged Out No longer eligi ble based on patient's age to complete this topic HPV VACCINE Aged Out No longer eligi ble based on patient's age to complete this topic MENINGOCOCCAL (Group B) VACCINE SHARED DECISION-MAKING Aged Out No longer eligible based on patient's age to complete this topic MENINGOCOCCAL GROUPS A/C/Y/W VACCINE Aged Out No longer eligible b ased on patient's age to complete this topic Procedures Procedure Name Priority Date/Time Associated Diagnosis Comments COMPREHENSIVE METABOLIC PANEL Routine 08/28/2017 1:59 PM BUSH [employer]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 Polyarthralgia Elevated rheumatoid factor Chronic low back pain, unspecified back pain laterality, with sciatica presence unspecified Long-term use of Plaquenil Medication monitoring encounter HEPATITIS C ANTIBODY Routine 02/10/2017 12:06 PM CDT Livedo reticularis Elevated rheumatoid factor Polyarthralgia Chronic low back pain, unspecified back pain laterality, with sciatica presence unspecified Malaise and fatigue Weight gain from Last 3 Months or Most Recently Relevant to Health Maintenance Results * (ABNORMAL) COMPREHENSIVE METABOLIC PANEL (08/28/2017 1:59 PM 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) Glucose 95 65 - 99 mg/dL [facility] INSURANCE BILL BUN 9 6 - 24 mg/dL [facility] INSURANCE BILL Creatinine 0.81 0.57 - 1.00 mg/dL [facility] INSURANCE BILL eGFR by MDRD 90 >59 mL/min/1.7 3 [facility] INSURANCE BILL eGFR by MDRD 104 >59 mL/min/1.7 3 [facility] INSURANCE BILL BUN/Creatinine Ratio 11 9 - 23 [facility] INSURANCE BILL Sodium 139 134 - 144 mmol/L [facility] INSURANCE BILL Potassium 4.6 3.5 - 5.2 mmol/L [facility] INSURANCE BILL Chloride 101 96 - 106 mmol/L [facility] INSURANCE BILL CO2 25 18 - 29 mmol/L [facility] INSURANCE BILL Calcium 9.5 8.7 - 10.2 mg/dL [facility] INSURANCE BILL Protein Total 7.2 6.0 - 8.5 g/dL [facility] INSURANCE BILL Albumin 4.0 3.5 - 5.5 g/dL [facility] INSURANCE BILL Globulin Total 3.2 1.5 - 4.5 g/dL [facility] INSURANCE BILL Albumin/Globulin Ratio 1.3 1.2 - 2.2 [facility] INSURANCE BILL Bilirubin Total <0.2 0.0 - 1.2 mg/dL [facility] INSURANCE BILL Alkaline Phosphatase 138(H) 39 - 117 IU/L [facility] INSURANCE BILL AST 34 0 - 40 IU/L [facility] INSURANCE BILL ALT 34(H) 0 - 32 IU/L [facility] INSURANCE BILL Blood BLOOD SPECIMEN / Unknown 08/28/2017 1:59 PM 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 08/28/2017 Narrative Resulting Agency Comment [facility] [address] [facility] [id number] Arcenio Cowan MD LAB - CHEMISTRY AD GARCIA [facility] INSURANCE BILL [address] [place] [address] * HEPATITIS C ANTIBODY (02/10/2017 12:06 PM CDT) Hepatitis C Antibody Non Reactive Non Reactive [facility] INSURANCE BILL Comment: Non Reactive - Antibodies to Hepatitis C virus (HCV) were no t detected, result does not exclude early acute HCV infection. Blood BLOOD SPECIMEN / Unknown 02/10/2017 12:06 PM CDT 02/10/2017 Narrative Resulting Agency Comment [facility] [address] [facility] [id number] Arcenio Cowan MD LAB - CHEMISTRY AD GARCIA [facility] INSURANCE BILL [address] [place] [address] from Last 3 Months or Most Recently Relevant to Health Maintenance Care Teams Motion Designer Relationship Specialty Start Date End Date Jesús Jaeger MD [address] [place] [phone] PCP - General Internal Medicine 11/27/17 [place] [address] [place] [address] [place] [phone] Emergency Services Director Rheumatology 02/10/17
--- OUTSIDE RECORDS SUMMARY | 2024-10-22 11:15 | XMS_ITS | Continuity of Care Document ---
Author Organization [facility] Address [address] [place] [phone] Phone Care Team Providers Care Taxi Proprietor Name Role Phone Unavailable Unavailable Unavailable Advance Directives Directive Yes / No Effective Date File Name No Information Encounters Encounter Description Practice Location Reason(s) For Visit Diagnoses Date Provider Providers Copied on Encounter [facility], [address] [place] [address], [id number], [place] tel:[phone] [facility] No Information No Information Family History Family Member Type Diagnosis Age At Onset No Information Payers Payer name Insurance type Covered constitution party ID Authoriza tion(s) No Information Social History [...]
== END 2024-10-22 10:07 | disposition home or self-care (01) ==
PROVIDERS: PCP Internal Medicine; Visit Provider Internal Medicine
DX: J02.9 Acute pharyngitis, unspecified (principal)
CPT/HCPCS: 87070

== ENCOUNTER 2025-01-06 08:44 | Outpatient (CLI) | payer OTHER, SELFPAY ==
--- NOTE | ~2025-01-06 | CT_ITS ---
CT sinus wo con Ordering provider: Sanju Anguiano DO History: . J32.9 - Chronic sinusitis, unspecified . Comparison: None Technique: Thin slice Scans CT of the paranasal sinuses was performed with coronal and sagittal refor matted images. No IV contrast. . Automated exposure control and iterative reconstruction technique w ere employed. The dose-length product was 259.66 mGy-cm. Findings: NASAL SEPTUM: Mild right nasal septal deviation. OSTEOMEATAL UNITS: Bilaterally patent. NASAL TURBINATES AND NASOPHARYNX: Normal. PARANASAL SINUSES: Left maxillary sinus disease. Otherwise, Well aerated. VISUALIZED MASTOIDS: Effusion in the left mastoid air cells. The right is normal as visualized. BONES: Normal. SUPERFICIAL SOFT TISSUES/VISUALIZED BRAIN PARENCHYMA: Normal. IMPRESSION: Mild right nasal septal deviation. Left mastoid air cells effusion. Left maxillary sinus disease. Reviewed, dictated and finalized at location A.
== END 2025-01-06 08:45 | disposition home or self-care (01) ==
LOC: MICIMG 08:45
PROVIDERS: PCP Internal Medicine; Visit Provider Internal Medicine
DX: J32.9 Chronic sinusitis, unspecified (principal); J34.2 Deviated nasal septum
CPT/HCPCS: 70486

== ENCOUNTER 2025-01-14 11:54 | Outpatient (CLI) | payer OTHER, SELFPAY ==
--- OUTSIDE RECORDS SUMMARY | 2025-01-14 11:56 | XMS_ITS | Clinical Summary ---
Author Organization [facility] Address [address] [place] [address] Care Team Providers Care Projector Operator Name Role Phone Unavailable Primary Care Provider [...] A M CDT Height 157.5 cm (5' 2) 04/13/2017 9:53 AM CDT Body Mass Index [...] 5 Years) and At-Risk Patients (6 to 49 Years) Aged Out No longer eligible b [...] has been evaluated with computer assisted technology. DECKHAND FISHING VESSEL SEE NOTE MED GROUP TO EPIC CONVERSION Comment: Result Comment: MEF, CT(ASCP) CT screening location: [address] [place] [address] REVIEW DECKHAND FISHING VESSEL: SEE NOTE MEDGROUP T O EPIC CONVERSION Comment: Result Comment: MDG, CT(ASCP) CT screening location: [place] [address] [place] [address] HPV INTERMEDIATE/HIGH RISK TNP [facility] TO EPIC CONVERSION Comment: Result Comment: Test not performed. Duplicate test. CHLAMYDIA TRACHOMATIS RNA TMA NOT DETECTED NOT DETECTED [facility] TO EPIC CONVERSION N.GONORRHOEAE RNA TMA (QST) NOT DETECTED NOT DETECTED [facility] TO EPIC CONVERSION COMMENT: SEE NOTE MEDGROUP T O EPIC CONVERSION Comment: Result Comment: This test was performed using the APTIMA COMBO2 Assay ([employer] The analytical performance characteristics of this assay, when used to test SurePath specimens have been determined by [employer]. Test Performed at: [facility] [address] [address] MIGUEL WYNN MD INFECTION: SEE NOTE MEDGROUP [...]
--- OUTSIDE RECORDS SUMMARY | 2025-01-14 11:56 | XMS_ITS | Clinical Summary ---
Author Organization [facility] [employer] Address [address] [facility] [place] [address] Care Team Providers Care Catering Cook Name Role Phone Arcenio Cowan MD Unavailable Jesús Jaeger MD Primary Care Provider [phone] Source Comments [facility] [employer],non-owned Affiliates and Associated Physician Practices is amultiple site organization consisting of ambulatory clinics and hospital sitesin [place], [place], [place] and [place]. This disclosure is being madepursuant to the Care Everywhere program and may not contain all information available regarding this patient. Last updated 18.[facility] [employer] Allergies Active Allergy Reactions Criticality Noted Date [...] document. Alwaysverify current medications with the patient. 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 Not on file Not on file Last Filed Vital Signs Vital Sign Reading Time Taken Comments Blood Pressure 110/74 11/27/2017 12:32 PM CDT Pulse 102 11/27/2017 12:32 PM CDT Temperature - - Respiratory Rate - - Oxygen Saturation - - Inhaled Oxygen Concentration - - Weight 92.2 kg (203 lb 3.2 oz) 11/27/2017 12:32 PM CDT Height 157.5 cm (5' 2) 11/27/2017 12:32 PM CDT Body Mass Index 37.17 11/27/2017 12:32 PM CDT Plan of Treatment Health Maintenance Due Date Last Done Comments WAGNER (AGES 45-75) - COL ON CA SCREENING 1975 COLON MONITORING 1975 COLONOSCOPY - COLON CA SCREENING 1975 CT COLONOGRAPHY - COLON CA SCREENING 1975 Colorectal Cancer Screening 1975 FIT - COLON CA SCREENING 1975 FLEX SIG - COLON CA SCREENING 1975 LIPID TESTING 1975 MAMMOGRAM 1975 MEDICARE AWV 12 MONTHS 1975 HIV SCREENING 1990 DTAP/TDAP/TD VACCINES (1 - Tdap) 1994 HEPATITIS B VACCINE (1 of 3 - 19+ 3-dose series) 1994 PAP SMEAR 1996 SCREENING FOR DIABETES 08/28/2020 8, 02/10/2017 COVID-19 VACCINE (1 - 2023-2 5 season) 2024 DEPRESSION SCREENING 07/17/2024 INFLUENZA VACCINE (Season Ended) 2025 ZOSTER VACCINE [...] COMPREHENSIVE METABOLIC PANEL Routine 08/28/2017 1:59 PM DIRECTIONAL DRILLER Polyarthralgia Elevated rheumatoid factor Chronic low back [...] (ABNORMAL) COMPREHENSIVE METABOLIC PANEL (08/28/2017 1:59 PM DIRECTIONAL DRILLER) Glucose 95 65 - 99 mg/dL [facility] [...] BLOOD SPECIMEN / Unknown 08/28/2017 1:59 PM DIRECTIONAL DRILLER 08/28/2017 Narrative Resulting Agency Comment [facility] [address] [facility] [id number] [place] Arcenio Cowan MD LAB - CHEMISTRY ORDERABLES Final Result [facility] INSURANCE BILL [address] [place] [address] * HEPATITIS C ANTIBODY (02/10/2017 12:06 PM CDT) Pathologist [facility] Hepatitis C Antibody Non Reactive Non Reactive [facility] INSURANCE BILL Comment: Non Reactive - Antibodies to Hepatitis C virus (HCV) were no t detected, result does not exclude early acute HCV infection. Blood BLOOD SPECIMEN / Unknown 02/10/2017 12:06 PM CDT 02/10/2017 Narrative Resulting Agency Comment [facility] [address] [facility] [id number] Arcenio Cowan MD LAB - CHEMISTRY ORDERABLES Final Result [facility] INSURANCE BILL [address] [place] [address] from Last 3 Months or Most Recently Relevant to Health Maintenance Insurance MEDICARE ESSENCE MEDICARE ESSENCE MEDICARE Care Teams Catering Cook Relationship Specialty Start Date End Date Jesús Jaeger MD [address] [place] [phone] PCP - General Internal Medicine 11/27/17 [place] [address] [phone] Service Advisor Rheumatology 02/10/17
--- OUTSIDE RECORDS SUMMARY | 2025-01-14 11:56 | XMS_ITS | Clinical Summary ---
Author Organization [facility] Address [address] [place] [address] Phone Care Team Providers Care Senior Software Test Engineer Name Role Phone Dustin Edwards MD Primary [...] topic Insurance MEDICARE C ESSENCE Care Teams Senior Software Test Engineer Relationship Specialty Start Date End Date Dustin Edwards MD [address] [place] [address] PCP - General Family Medicine 10/27/16
== END 2025-01-14 11:55 | disposition home or self-care (01) ==
LOC: ANHAUDIO 11:54
PROVIDERS: PCP Internal Medicine; Visit Provider Otolaryngology
DX: H93.13 Tinnitus, bilateral (principal); H91.90 Unspecified hearing loss, unspecified ear
CPT/HCPCS: 92557; 92567

== ENCOUNTER 2025-01-24 01:22 | Day surgery (SDC) | payer OTHER, SELFPAY ==
[2025-01-15 16:17] VITALS: BMI 43.9
--- NOTE | 2025-01-15 16:55 | PC.NURSE ---
Report to the Outpatient Waiting Room, entrance under the green pavilion located off [facility], at 0915 on 01-24-25. Planned Procedure Time: 1115.? Time changes happen often and if your time is changed the preop area will call you the afternoon before. - You and your visitor will be asked to self-screen and do not enter if you have any COVID symptoms. Please call surgeon if you need to reschedule. - A mask is optional within the hospital at this time. Patients may have clear liquids (water, carbonated beverages, clear teas, apple juice) until 3 hours prior to surgery with a maximum of 20 ounces. 0815 - No food from midnight until time of surgery and no smoking, or chewing tobacco (or any form of nicotine). No chewing gum, candy or mints. - Infants may have breast milk until 4 hours before surgery, formula 6 hours prior to surgery. - Children will be allowed to drink immediately following surgery.? If applicable, please bring a bottle or sippy cup to assist with drinking. Juice, water, soda, and popsicles are readily available.? For infants on formula, please bring formula the day of surgery.? Pacifiers are allowed. Take only the following medications with a SIP of water on the morning of surgery: Venlafaxine, Tylenol if needed Told to bring epi-pen and inhaler to hospital DOS. DO NOT STOP ANY OF YOUR OTHER PRESCRIPTION MEDICATIONS PRIOR TO SURGERY EXCEPT THE FOLLOWING Hold all vitamins and supplements for 3 days per anesthesiologist. Medications to discontinue per physician: ibuprofen Date to take last dose: Per Dr. Bauer Please no make-up, nail samoan, hairspray, perfume, deodorant, or body powder the day of surgery.? No jewelry (including any body piercings) or valuables the day of surgery, leave them at home.? Please take a shower or bath the night before, or the morning of, surgery with an antibacterial soap.? Wear comfortable, loose fitting clothing.? Children are encouraged to wear pajamas. - Jewelry must be removed prior to entering the operating room.? Rings and piercings that are not removed may be cut off. - The hospital will not accept responsibility for valuables.? - Please leave all valuables, including medications, at home the day of surgery. If you are going home after surgery, a licensed batch mixing truck driver must drive you home.? - NO public transportation without another adult if you receive anesthesia. - We recommend that an adult stay with you for 24 hours following discharge. - We also recommend that you do not drive, make important decision, drink alcoholic beverages, or take any drugs that were not prescribed by your health care provider for at least 24 hours after your discharge time. For Pediatric surgeries, we recommend two adults accompany the child home. Follow any additional instructions given to you from your surgeon. Telephone instructions given to Eveline Kee and asked if any additional questions and then verbalized understanding. Patient advised to call surgeon office or pre surgery nurse liaison [phone] if any additional questions.
--- NOTE | 2025-01-21 18:39 | PM.IMHP ---
H&P: HPI History of Present Illness Date/Time: 01/21/25 18:39 Chief Complaint: incontinence Narrative: symptomatic DENISHA Review of Systems Review of Systems: All systems reviewed & are unremarkable except as noted in HPI and below PMFSH Past Medical History Medical History (Updated 01/21/25 @ 18:40 by John Bauer MD) DENISHA (stress urinary incontinence, female) Depression History of bronchitis History of blood transfusion History of miscarriage Seasonal allergies Anemia Incontinence Vision abnormalities Metatarsal bone fracture Vaginal delivery x 2 Surgical History Surgical History S/P ACL surgery Right Previous back surgery S/P breast lumpectomy Status post abdominal hysterectomy and right salpingo-oophorectomy S/P laparoscopic surgery History of dilation and curettage Family History Family History Grandparent Family history of blood dyscrasia Father Hypertension Cerebrovascular accident Family history of obesity Depression Family history of coronary artery disease Family history of hearing loss Family history of chronic obstructive pulmonary disease Acute myocardial infarction Mother Hypertension Family history of obesity Family history of osteoporosis Patient's mother is in good health Family history of arthritis Family history of chronic obstructive pulmonary disease Other Family history of dementia Family history of gastrointestinal disorder Family history of thoracic aortic aneurysm Neuropathy Social History Social History Smoking packs per day: 1 Smoking cigarettes per day: 20.0 Years smoked: 35 Smoking pack-years: 35.00 Smoking status: Current every day smoker Tobacco type: cigarettes Second hand tobacco smoke exposure: Yes Alcohol intake: current Alcohol use details: very rarely Substance use: former Substance use type: marijuana Do You Feel Safe in your Home?: Yes Lack of Transportation: No Lack of Food: Never True Current Housing: I Have Housing Concerned About Future Housing: No Difficulty Paying Gas/Electric Bills: No Difficulty Paying for Meds: No Currently Unemployed: No Education: Associate Degree Difficulty w/ Childcare or Family Care: No Living arrangements: other Occupation/Education: other Additional occupation/education comments: Disabled-[employer] Gender identity (if verbalized by the patient): Female Spiritual care concerns: No Meds Home Medications and Allergies Home Medications ?Medication ?Instructions ?Recorded ?Confirmed ?Type tizanidine 6 mg capsule 6 mg PO TID PRN Pain 07/03/19 01/15/25 History ciclopirox 8 % topical solution 1 applic topical QHS 48 weeks #6.6 10/27/22 01/15/25 Rx mL venlafaxine 75 mg capsule,extended See Rx Instructions .Route 04/11/24 01/15/25 Rx release 24 hr .COMPLEX #90 caps epinephrine 0.3 mg/0.3 mL 0.3 mg (0.3 mL) IM ONCE #2 ea 04/24/24 01/15/25 Rx injection, auto-injector B12 1,000 1 tablet PO DAILY #90 tabs 10/23/24 01/15/25 Rx mcg-methyltetrahydrofolate 680 mcg DFE-B6 1.5 mg chew tablet cholecalciferol (vitamin D3) 1,250 1,250 mcg PO WEEKLY #12 tabs 10/23/24 01/15/25 Rx mcg (50,000 unit) tablet atorvastatin 20 mg tablet (Lipitor) 20 mg PO DAILY #90 tabs 12/31/24 01/15/25 Rx Dream Cream See Rx Instructions .Route 01/06/25 01/15/25 Rx .COMPLEX #30 grams esterified 1 tablet PO DAILY #90 tabs 01/06/25 01/15/25 Rx estrogens-methyltestosterone 1.25 mg-2.5 mg tablet estradiol 0.01% (0.1 mg/gram) 1 g vaginal DAILY #42.5 grams 01/06/25 01/15/25 Rx vaginal cream (Estrace) azelastine 137 mcg (0.1 %) nasal 1 - 2 spray intranasal Q12H #30 mL 01/09/25 01/15/25 Rx spray fluticasone propionate 50 2 spray intranasal BID #16 grams 01/09/25 01/15/25 Rx mcg/actuation nasal spray,suspension (Flonase Allergy Relief) prednisone 10 mg tablet 10 mg PO QAM #7 tabs 01/09/25 01/15/25 Rx albuterol 90 mcg/actuation aerosol 90 mcg inhalation Q6H PRN allergy 01/15/25 01/15/25 History inhaler symptoms/ SOB esomeprazole magnesium 20 mg 40 mg PO DAILY 01/15/25 01/15/25 History capsule,delayed release (Nexium) ibuprofen 200 mg tablet (Advil) 800 mg PO BID 01/15/25 01/15/25 History sumatriptan succinate 50 mg tablet See Rx Instructions PO .COMPLEX 01/15/25 01/15/25 History (Imitrex) Allergies Allergy/AdvReac Type Severity Reaction Status Date / Time aspirin Allergy Severe Unknown Verified 01/15/25 16:04 ferrous sulfate Allergy Severe Anaphylaxis Verified 01/15/25 16:04 Penicillins Allergy Severe Anaphylaxis Verified 01/15/25 16:04 prochlorperazine Allergy Severe Swelling Verified 01/15/25 16:04 Sulfa (Sulfonamide Allergy Severe Anaphylaxis Verified 01/15/25 16:04 Antibiotics) venom-wasp Allergy Severe Anaphylaxis Verified 01/15/25 16:04 Exam Narrative: + urethral mobility Assessment and Plan Assessment and plan (1) DENISHA (stress urinary incontinence, female): Code(s): N39.3 - Stress incontinence (female) (male) Status: Acute Assessment and Plan: cystoscopy/urethral sling
--- OUTSIDE RECORDS SUMMARY | 2025-01-24 01:26 | XMS_ITS | Clinical Summary ---
Author Organization [facility] Address [address] [place] [address] Care Team Providers Care Aircraft Engine Technician Name Role Phone Arcenio Cowan MD Unavailable Jesús Jaeger MD Primary Care Provider [phone] Source Comments [facility],non-owned Affiliates and Associated Physician Practices is amultiple site organization consisting of ambulatory clinics and hospital sitesin [place], [place], [place] and [place]. This disclosure is being madepursuant to the Care Everywhere program and may not contain all information available regarding this patient. Last updated 18.[facility] Allergies Active Allergy Reactions Criticality Noted Date [...] COMPREHENSIVE METABOLIC PANEL Routine 08/28/2017 1:59 PM TICKER MAINTAINER Polyarthralgia Elevated rheumatoid factor Chronic low back [...] (ABNORMAL) COMPREHENSIVE METABOLIC PANEL (08/28/2017 1:59 PM TICKER MAINTAINER) Glucose 95 65 - 99 mg/dL [facility] [...] BLOOD SPECIMEN / Unknown 08/28/2017 1:59 PM TICKER MAINTAINER 08/28/2017 Narrative Resulting Agency Comment [facility] [address] [facility] [id number] [place] Arcenio Cowan MD LAB - CHEMISTRY ORDERABLES Final Result [facility] INSURANCE BILL [address] [place] [address] * HEPATITIS C ANTIBODY (02/10/2017 12:06 PM CDT) Pathologist [facility] [place] Hepatitis C Antibody Non Reactive Non Reactive [facility] INSURANCE BILL Comment: Non Reactive - Antibodies to Hepatitis C virus (HCV) were no t detected, result does not exclude early acute HCV infection. Blood BLOOD SPECIMEN / Unknown 02/10/2017 12:06 PM CDT 02/10/2017 Narrative Resulting Agency Comment [facility] [address] [facility] [id number] Arcenio Cowan MD LAB - CHEMISTRY ORDERABLES Final Result [facility] INSURANCE BILL [address] [place] [address] from Last 3 Months or Most Recently Relevant to Health Maintenance Insurance MEDICARE ESSENCE MEDICARE ESSENCE MEDICARE Care Teams Aircraft Engine Technician Relationship Specialty Start Date End Date Jesús Jaeger MD [address] [place] [id number] PCP - General Internal Medicine 11/27/17 [place] [address] [phone] Director Strategic Account Management Rheumatology 02/10/17
--- OUTSIDE RECORDS SUMMARY | 2025-01-24 01:26 | XMS_ITS | Continuity of Care Document ---
Author Organization [facility] Address [address] [place] [phone] Phone Care Team Providers Care Muff Winder Name Role Phone Unavailable Unavailable Unavailable Advance Directives Directive Yes / No Effective Date File Name No Information Encounters Encounter Description Practice Location Reason(s) For Visit Diagnoses Date Provider Providers Copied on Encounter [facility], [address] [place] [address], [id number], [place] tel:[phone] [facility] No Information No Information Family History Family Member Type Diagnosis Age At Onset No Information Payers Payer name Insurance type Covered alliance party ID Authoriza tion(s) No Information Social [...]
--- OUTSIDE RECORDS SUMMARY | 2025-01-24 01:26 | XMS_ITS | Continuity of Care Document ---
Author Organization [employer] [facility] Address [address] [address] [place] [address] Phone Care Team Providers Care Corporate Executive Chef Name Role Phone Unavailable Unavailable Unavailable Allergies, [...] Diagnoses Date Provider Providers Copied on Encounter [facility], [address] [address], [place], [place], [id number] , tel: [phone] [facility] 1st Care No Information 9 No Information [facility], [address] [address], [place], [place], [id number] , tel: [phone] [facility] Orthopaedics No Information 6 Debbie Sultana. [address] [place] [address], [id number], [place]. tel:[phone] Referring Provider: Rd Lewis [address] [place] [address], [id number] . tel:[phone] [facility], [address] [address], [place], [place], [id number] , [place] tel: [phone] [facility] wrist injury (chief complaint) No Information 6 Amy Orellana. [address] [place], [place], [id number], [place]. tel:[phone] Referring Provider: Esteban Reyes, [address] [place], [address] . tel:[phone] [facility], [address] [address], [place], [place], [id number] , [place] tel: [phone] [facility] wt gain, depression (chief complaint) No Information 5 Amy Orellana. [address] [place], [place], [id number], [place]. tel:[phone] Referring Provider: Esteban Reyes, [address] [place], [address] . tel:[phone] Family History Family Member Type Diagnosis Age At Onset No Information Payers Payer name Insurance type Covered green party ID Authoriza tion(s) No Information Social [...]
--- OUTSIDE RECORDS SUMMARY | 2025-01-24 01:26 | XMS_ITS | Clinical Summary ---
Author Organization [facility] Address [address] [place] [address] Phone Care Team Providers Care Director Home Name Role Phone Dustin Edwards MD Primary [...] topic Insurance MEDICARE C ESSENCE Care Teams Director Home Relationship Specialty Start Date End Date Dustin Edwards MD [address] [place] [address] PCP - General Family Medicine 10/27/16
--- OUTSIDE RECORDS SUMMARY | 2025-01-24 01:26 | XMS_ITS | Clinical Summary ---
Author Organization [facility] Address [address] [place] [id number] Care Team Providers Care Car Mover Name Role Phone Unavailable Primary Care Provider [...] has been evaluated with computer assisted technology. VICE PRESIDENT OF NEWS SEE NOTE [facility] TO EPIC CONVERSION Comment: Result Comment: MEF, CT(ASCP) CT screening location: [address] [place] [address] REVIEW VICE PRESIDENT OF NEWS: SEE NOTE [facility] T O EPIC CONVERSION Comment: Result Comment: MDG, CT(ASCP) CT screening location: [place] [address] [place] [address] HPV INTERMEDIATE/HIGH RISK TNP [facility] TO EPIC CONVERSION Comment: Result Comment: Test not performed. Duplicate test. CHLAMYDIA TRACHOMATIS RNA TMA NOT DETECTED NOT DETECTED [facility] TO EPIC CONVERSION N.GONORRHOEAE RNA TMA (QST) NOT DETECTED NOT DETECTED [facility] TO EPIC CONVERSION COMMENT: SEE NOTE [facility] T O EPIC CONVERSION Comment: Result Comment: This test was performed using the APTIMA COMBO2 Assay ([employer] The analytical performance characteristics of this assay, when used to test SurePath specimens have been determined by [employer]. Test Performed at: [facility] [address] [address] MIGUEL WYNN MD INFECTION: SEE NOTE [facility] [...]
--- NOTE | 2025-01-24 07:18 | WPDHPUPDATE1 ---
History and Physical Update Update Date/Time: 01/24/25 07:18 History and Physical has been reviewed, including an updated exam of the patient. There are NO changes in the patient's condition. Risks, benefits, and alternatives have been discussed and questions answered. Patient agrees to proceed with procedure.
[2025-01-24 09:28] VITALS: BP 137/88; PULSE 85; RESP 16; TEMP 36.1; O2SAT 97; BMI 43.7
[2025-01-24] MEDS: LACTATED RINGERS 1,000 ML 30 ML IV CONT (09:30)
--- NOTE | 2025-01-24 09:54 | P.PNAN_ITS ---
Anes - Initial Pre Proc Eval Procedure: Operation Date: 01/24/25 10:30 Proposed Procedures p Urethral Sling - John Bauer MD Date/Time: 01/24/25 09:54 Surgeon: John Bauer MD Pre Op Diagnosis: stress incont Patient Data Age: 49 Gender: F Height: 1.57 m Weight: 108.5 kg Last Vital Signs Temp 36.1 C L 01/24/25 09:28 Pulse 85 01/24/25 09:28 Resp 16 01/24/25 09:28 BP 137/88 01/24/25 09:28 Pulse Ox 97 01/24/25 09:28 O2 Del Method Room Air 01/24/25 09:28 Allergies Allergy/AdvReac Type Severity Reaction Status Date / Time aspirin Allergy Severe Unknown Verified 01/15/25 16:04 ferrous sulfate Allergy Severe Anaphylaxis Verified 01/15/25 16:04 Penicillins Allergy Severe Anaphylaxis Verified 01/15/25 16:04 prochlorperazine Allergy Severe Swelling Verified 01/15/25 16:04 Sulfa (Sulfonamide Allergy Severe Anaphylaxis Verified 01/15/25 16:04 Antibiotics) venom-wasp Allergy Severe Anaphylaxis Verified 01/15/25 16:04 Home Medications ?Medication ?Instructions ?Recorded ?Confirmed ?Type tizanidine 6 mg capsule 6 mg PO TID PRN Pain 07/03/19 01/24/25 History ciclopirox 8 % topical solution 1 applic topical QHS 48 weeks #6.6 10/27/22 01/15/25 Rx mL venlafaxine 75 mg capsule,extended See Rx Instructions .Route 04/11/24 01/24/25 Rx release 24 hr .COMPLEX #90 caps epinephrine 0.3 mg/0.3 mL 0.3 mg (0.3 mL) IM ONCE #2 ea 04/24/24 01/15/25 Rx injection, auto-injector B12 1,000 1 tablet PO DAILY #90 tabs 10/23/24 01/15/25 Rx mcg-methyltetrahydrofolate 680 mcg DFE-B6 1.5 mg chew tablet cholecalciferol (vitamin D3) 1,250 1,250 mcg PO WEEKLY #12 tabs 10/23/24 01/15/25 Rx mcg (50,000 unit) tablet atorvastatin 20 mg tablet (Lipitor) 20 mg PO DAILY #90 tabs 12/31/24 01/15/25 Rx Dream Cream See Rx Instructions .Route 01/06/25 01/15/25 Rx .COMPLEX #30 grams esterified 1 tablet PO DAILY #90 tabs 01/06/25 01/15/25 Rx estrogens-methyltestosterone 1.25 mg-2.5 mg tablet estradiol 0.01% (0.1 mg/gram) 1 g vaginal DAILY #42.5 grams 01/06/25 01/15/25 Rx vaginal cream (Estrace) azelastine 137 mcg (0.1 %) nasal 1 - 2 spray intranasal Q12H #30 mL 01/09/25 01/15/25 Rx spray fluticasone propionate 50 2 spray intranasal BID #16 grams 01/09/25 01/24/25 Rx mcg/actuation nasal spray,suspension (Flonase Allergy Relief) prednisone 10 mg tablet 10 mg PO QAM #7 tabs 01/09/25 01/15/25 Rx albuterol 90 mcg/actuation aerosol 90 mcg inhalation Q6H PRN allergy 01/15/25 01/15/25 History inhaler symptoms/ SOB esomeprazole magnesium 20 mg 40 mg PO DAILY 01/15/25 01/15/25 History capsule,delayed release (Nexium) ibuprofen 200 mg tablet (Advil) 800 mg PO BID 01/15/25 01/15/25 History sumatriptan succinate 50 mg tablet See Rx Instructions PO .COMPLEX 01/15/25 01/15/25 History (Imitrex) Patient hx anesthesia problems: none Family hx anesthesia problems: none Results Review: All pre-operative results and documents have been reviewed as part of the pre- operative evaluation. [facility] Past Medical History Medical History DENISHA (stress urinary incontinence, female) Depression History of bronchitis History of blood transfusion History of miscarriage Seasonal allergies Anemia Incontinence Vision abnormalities Metatarsal bone fracture Vaginal delivery x 2 Surgical History Surgical History S/P ACL surgery Right Previous back surgery S/P breast lumpectomy Status post abdominal hysterectomy and right salpingo-oophorectomy S/P laparoscopic surgery History of dilation and curettage Family History Family History Grandparent Family history of blood dyscrasia Father Hypertension Cerebrovascular accident Family history of obesity Depression Family history of coronary artery disease Family history of hearing loss Family history of chronic obstructive pulmonary disease Acute myocardial infarction Mother Hypertension Family history of obesity Family history of osteoporosis Patient's mother is in good health Family history of arthritis Family history of chronic obstructive pulmonary disease Other Family history of dementia Family history of gastrointestinal disorder Family history of thoracic aortic aneurysm Neuropathy Social History Social History Smoking packs per day: 1 Smoking cigarettes per day: 20.0 Years smoked: 20 Smoking pack-years: 20.00 Smoking status: Current every day smoker Tobacco type: cigarettes Second hand tobacco smoke exposure: Yes Alcohol intake: current Alcohol use details: socially Substance use: never Substance use type: does not use Do You Feel Safe in your Home?: Yes Lack of Transportation: No Lack of Food: Never True Current Housing: I Have Housing Concerned About Future Housing: No Difficulty Paying Gas/Electric Bills: No Difficulty Paying for Meds: No Currently Unemployed: No Education: Associate Degree Difficulty w/ Childcare or Family Care: No Living arrangements: with family Occupation/Education: other 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 Informed Consent: The patient's anesthetic plan and its attendant risks and benefits were discussed with the patient/family/POA. Questions were solicited and answers provided to the satisfaction of the patient/family/POA.
[2025-01-24] MEDS: ceFAZolin 2 GM in SODIUM CHLORIDE 0.9% IV 50 ML 100 ML IVPB (11:15)
[2025-01-24] MEDS: BUPIVACAINE/EPINEPHRINE 0.5% 30 ML VIAL INFILTRATE (11:31)
--- NOTE | 2025-01-24 11:45 | W.PM.PROC2 ---
Procedure Note - Detailed Date of Procedure 01/24/25 Pre-op Diagnosis stress incont Post-op Diagnosis Same Procedure Performed mid urethral sling cystoscopy Surgeon John Bauer MD Anesthesia MAC and Local Indications This is a female with confirm stress urinary incontinence. She desires surgical correction. She understands the risks of bleeding, infection, injury to the urinary tract, vaginal mesh extrusion, urinary tract mesh erosion, obstructive voiding requiring a secondary procedure, hip and leg pain, dyspareunia, inability to improve overactive bladder symptoms. She agrees to proceed. Description of Procedure She was correctly identified. Informed consent obtained. She was brought the operating room. She was given appropriate anesthesia. She was given appropriate perioperative antibiotics. A time-out performed. I marked out the site of the inner thigh incisions. I anesthetized the skin and made those incisions. I anesthetized the anterior vaginal wall over the mid urethra. I made a 1 cm incision. I dissected out laterally taking great care not to injure the refilled vaginal wall. I passed the helical trocars. First on the left. Then on the right. I did this from the thigh incision towards the vaginal incision. The sling was connected to the trocars and brought out through the thigh incision. I tensioned the sling appropriately. I cut and the plastic sheaths. I then closed the incision with 2 0 Vicryl. On cystoscopy there is no tumors or surgical artifact. There was no surgical artifact in the urethra. I cut the excess sling material. Close incisions with glue. She was awakened and transferred to the PACU in stable condition. Implants Urethral sling Drains No Packing No Pathology None sent Complications No immediate complications Condition Stable Disposition PACU
[2025-01-24 11:46] VITALS: BP 124/79; PULSE 72; RESP 14; O2SAT 97
[2025-01-24 12:15] VITALS: BP 158/89; PULSE 63; RESP 14; O2SAT 98
[2025-01-24 12:55] VITALS: BP 120/79; PULSE 53; RESP 20
== END 2025-01-24 13:08 | disposition home or self-care (01) ==
PROVIDERS: PCP Internal Medicine; Visit Provider Urology
PROC: (CPT 57288; principal; 2025-01-24 10:30)
DX: N39.3 Stress incontinence (female) (male) (principal); F17.210 Nicotine dependence, cigarettes, uncomplicated; E66.01 Morbid (severe) obesity due to excess calories; Z68.41 Body mass index [BMI] 40.0-44.9, adult
CPT/HCPCS: 57288; J0690; C1771; J2003; J2250; J2704; J3010; J7120

== ENCOUNTER 2025-05-20 10:42 | Outpatient (CLI) | payer OTHER, SELFPAY ==
--- NOTE | ~2025-05-20 | MM_ITS ---
EXAMINATION: MM screening rodney BI w luis alberto HISTORY: Screening TECHNIQUE: Craniocaudal and mediolateral oblique 3-D tomosynthesis images were obtained and synthetic 2-D images were generated. CAD analysis was submitted and interpreted. COMPARISON: Comparison to multiple prior studies sequentially, with oldest reviewed study dated , 04/16/2018 BREAST PARENCHYMAL COMPOSITION: The breasts are almost entirely fatty. FINDINGS: There is no evidence of suspicious mass, calcification, or architectural distortion to suggest malignancy in either breast. IMPRESSION: 1. No mammographic evidence of malignancy. 2. Recommend routine screening mammography in one year. BI-RADS Category 1: Negative Reviewed, dictated and finalized at location B. FACTURING LAB TECHNICIAN
== END 2025-05-20 10:43 | disposition home or self-care (01) ==
LOC: MICIMG 10:44
PROVIDERS: PCP Internal Medicine; Visit Provider Nurse Practitioner Family
DX: Z12.31 Encounter for screening mammogram for malignant neoplasm of breast (principal)
CPT/HCPCS: 77063; 77067